=== PATIENT | male | born 1975 | race Caucasian/White ===

== ENCOUNTER 2022-05-22 17:01 | Inpatient (IN) | payer BC, SELFPAY ==
[2022-05-22] VITALS (49 sets, daily range): BP systolic 112–175; BP diastolic 73–97; PULSE 62–94; RESP 12–23; TEMP 36.4–36.6; O2SAT 93–100
--- NOTE | 2022-05-22 17:00 | RT.EKG_ITS ---
APPROVED REPORT Exam: Resting ECG Reason for Exam: chest pain Patient Location: E HR:72 bpm ECG Measurements Heart Rate 72 AXIS CO 182 P 32 QRSd 85 QRS -12 QT 377 T 102 QTc 413 Conclusion Sinus rhythm...normal P axis, V-rate 60- 99 Nonspecific repol abnormality, lateral leads...ST dep, T neg, I aVL V5 V6 st dep inferior lateral, hyperacute T waves Abnormal Electrocardiogram
--- NOTE | 2022-05-22 17:15 | DI.CT_ITS ---
Exam(s) CT THORAX ABD/PEL CTA EXAM: CT THORAX ABD/PEL CTA CLINICAL HISTORY: central chest pain. TECHNIQUE: Imaging Protocol: Axial CT angiography was performed with multi-slice acquisition and mu lti-planar and/or 3D reconstructions. CONTRAST MATERIAL: Intravenous: Omnipaque 350 Contrast volume:100 ml COMPARISON: No exams were available for comparison FINDINGS: CHEST: Pulmonary Arteries: No evidence of filling defect to suggest pulmonary emboli. Tracheobronchial tree: Patent where visualized. Mediastinum and Rose: No dominant adenopathy or fluid collection. Pulmonary parenchyma: No consolidation or dominant measurable mass. No architectural distortion. Pleura: No effusion or pneumothorax. Heart: The heart is not dilated. No coronary artery calcifications are seen. Aorta: Thoracic aorta non-dilated. Bones: Degenerative changes in the spine. Soft tissues: Mild symmetric bilateral gynecomastia. ABDOMEN: Liver: Moderate hepatic steatosis. Liver enlarged.. No measurable mass. Portal, Superior Mesenteric, and Splenic Veins: Unremarkable. Gallbladder and Biliary Tract: No radiodense calculus or dilation. Pancreas: Normal density, no abnormal calcifications or inflammatory process. Spleen: Normal. Adrenals: No masses seen. Kidneys: Normal size, contour and axis. No radiodense stones or obstructive uropathy. No masses seen. Abdominal Aorta and branch vessels: Abdominal aorta non-dilated. Mild atherosclerotic changes. No e vidence of dissection. No branch vessel occlusion. Iliac arteries normal in diameter. Bowel: No obstruction . Appendix is unremarkable. There is wall thickening of the sigmoid colon witho ut definite surrounding inflammation which could be secondary to muscular hypertrophy. Normal quanti ty of stool. Peritoneal Cavity: No ascites, collection or mesenteric inflammatory response. Lymph Nodes: Within normal limits. Bones: Degenerative changes in the spine. Soft Tissues: Unremarkable. PELVIS: Bladder: Symmetric distention, no gross wall thickening. Reproductive Organs: Unremarkable as visualized. Lymph Nodes: Within normal limits. Bones: Degenerative changes in the hips. Soft tissues: Bilateral fatty containing inguinal hernias, right greater than left. IMPRESSION: 1. Minimal atherosclerotic changes. No evidence of aortic dissection or aneurysm or pulmonary emboli sm. Branch vessels are intact. 2. No acute abdominal or pelvic process. Muscular hypertrophy of the wall of the sigmoid colon witho ut definite surrounding inflammation. RADIATION DOSE DELIVERED: 1,198.82mGy.cm Total DLP DATA REPOSITORY: All CT scans at this facility are submitted to the National Radiology Data Registry (NRDR) Dose Index Registry (DIR) with the [employer] (ACR). RADIATION OPTIMIZATION: All CT scans at this facility use at least one of these dose optimization te chniques: automated exposure control; mA and/or kV adjustment per patient size (includes targeted exa ms where dose is matched to clinical indication); or iterative reconstruction.
--- NOTE | 2022-05-22 17:21 | W.ED.GENAD ---
Discharge Plan Disposition Patient Disposition: [facility] INPATIENT Condition: Stable Discharge Details Chief Complaint: Chest Pain Clinical Impression: NSTEMI (non-ST elevated myocardial infarction) Admit Date/Time: 05/22/22 19:12 Admit Provider: Hernando Liu Attending Provider: Hernando Liu Primary Care Provider: Sukhwinder Winter ED Provider: Clayton Reyna Discharge Instructions Activity:: BEDREST Diet:: NPO Discharge Orders Discharge Orders: Discharge Order (Routine); Ordered 05/23/22 Ordered By: Teddy Bell Discharge Data Discharge Date/Time-TO BE ENTERED AT DEPARTURE: 05/22/22 20:15 Medical Decision Making 172 --46-year-old male smoker here with viselike chest pain since around 3 PM today with earlier symptoms this morning and chest discomfort a few days ago as well with exertional activity. Patient has no known cardiac history. He is hypertensive on arrival blood pressure 175/92. Saturating well no respiratory distress. I am concerned about potential ACS. EKG was reviewed interpreted by me: Please see report, sinus rhythm 72 bpm, normal axis, ST depression noted lead I, aVL, V5 and V6. Plan to check troponin. Given central description of pain as well as bubble discomfort a few days ago and now vice like farmworker dairy with hypertension, I am concerned about potential thoracic aortic dissection. Plan to obtain CTA of the chest. Patient has had recent significant life stressors with the passing of his mother. I do believe anxiety is contributing to presentation today. I will give Ativan 0.5 mg IV. 1852 --troponin is significantly elevated at 1500. CT of the chest was reviewed by me and no dissection. Awaiting radiologist interpretation. Repeat EKG was reviewed and interpreted by me: ST depressions have resolved, he does have biphasic T wave in V3 and V4 which are new. Concern for dynamic EKG changes. Patient was reassessed and blood pressure improved. Patient currently has no pain. Nitroglycerin will be held at this time. I will start heparin bolus and infusion as well as provide Plavix. He took aspirin prior to arrival. I called [facility] [place] to request transfer. EKGs were sent for review. Awaiting callback from cardiology. 1912 --I spoke with on-call offset printing operator at [facility] [place], discussed ED presentation and course, he reviewed EKGs, he agrees with heparin drip and Plavix. He agrees with need to transfer for catheterization and accepts the patient on behalf of of Dr. Clifford. He recommends holding the patient here until tomorrow for catheterization noting no bed capacity at this time. I spoke with the hospitalist on-call, Dr. Liu, discussed ED presentation course, he will accept the patient and request bridging orders be placed. HPI General Mode of arrival: ambulatory. Date/Time Provider Initiated Documentation: 05/22/22 17:19. Limitations to Documentation: no limitations. Information obtained by: patient. HPI Narrative: 46-year-old male smoker with history of GERD, presents with chief complaint of chest pain. Patient notes pain started on Friday with exertional activities. He notes he was clearing out his recently mother's home and doing heavy lifting with pain came on. Initially pain felt like a bubble in his chest. Symptoms resolved and he was pain-free on Friday and yesterday. Pain returned last night and was severe. Pain described as a viselike sensation on his chest. He notes around 4 AM he had nausea and vomiting and then felt better. He was able to sleep for a few hours. Pain returned today around 3 PM and has been persistent. Pain waxing and waning but still feels like a vice on his chest. No radiation. No associated shortness of breath. Patient does note he is been under a lot of stress with the passing of his mother. He has no history of anxiety disorder but is feeling anxious. Related Data Home Medications Medication Instructions Recorded Confirmed omeprazole magnesium 20 mg 20 mg PO DAILY 05/22/22 05/22/22 tablet,delayed release (Prilosec OTC) Allergies Allergy/AdvReac Type Severity Reaction Status Date / Time No Known Allergies Allergy Unverified 05/22/22 17:10 General Stated Complaint: Chest Pain BRUCE: 2 Review of Systems All systems reviewed & are unremarkable except as noted in HPI and below Constitutional Constitutional: Denies fever(s) Cardiovascular Cardiovascular: Reports as per HPI PFSH All Active Problems (Updated 05/31/22 @ 08:11 by Clayton Reyna MD) NSTEMI (non-ST elevated myocardial infarction) (Acute) Social History Smoking/Tobacco Use Status: Current every day Tobacco Type: cigarettes Smoking risk assessment performed?: Yes Alcohol Intake: never Drug use: Occasionally Substance use type: does not use and marijuana Do you feel safe at home: Yes Do you feel safe in your relationship?: Yes Exam Const General: cooperative Orientation: alert and awake HENMT Head: normocephalic Mouth: moist mucous membranes Eyes Conjunctivae: normal conjunctivae Sclera: normal sclerae EOM: EOM intact bilaterally Neck Neck: trachea midline and supple Resp Auscultation: clear to auscultation bilaterally, no rales, no rhonchi and no wheezes Cardio Jugular venous pressure: no JVD Rate: regular rate and not tachycardic Rhythm: regular rhythm Heart Sounds: S1 normal, S2 normal, no gallops, no murmurs and no rubs GI Palpation: soft, not firm, no guarding, no masses, not rigid and nontender Skin General skin exam: no rashes or lesions noted Neuro General: patient alert, patient awake, patient oriented x3 and tone normal Extrem General: no calf tenderness and no edema Psych Appearance: grossly normal Mental Status: mental status grossly normal Speech and Movement: speech and movement normal Mood: anxious mood Affect: anxious affect Course Vital Signs Vital signs: Vital Signs Temperature 36.6 C 05/22/22 17:04 Pulse 89 05/22/22 17:04 Respiratory Rate 15 05/22/22 17:04 Blood Pressure 175/92 H 05/22/22 17:04 Pulse Oximetry 99 05/22/22 17:04 Temperature 36.6 C 05/22/22 17:04 Temperature Source Skin 05/22/22 17:04 Pulse 89 05/22/22 17:04 Respiratory Rate 18 05/22/22 17:11 Respiratory Effort Non-Labored 05/22/22 17:11 Respiratory Depth Normal 05/22/22 17:11 Blood Pressure 175/92 H 05/22/22 17:04 Blood Pressure Position Supine 05/22/22 17:04 Pulse Oximetry 99 05/22/22 17:04 Oxygen Delivery Method Room Air 05/22/22 17:04 Oxygen Flow Rate 0 05/22/22 17:04 Pain Level 9 05/22/22 17:04
[2022-05-22 17:27] LABS: Abs Immature Grans 0.04 10^3/uL (0.0-0.06); Absolute Basophil Count 0.11 10^3/uL (0.0-0.2); Absolute Eosinophil Count 0.26 10^3/uL (0.0-0.7); Absolute Lymphocyte Count 3.05 10^3/uL (1.2-3.4); Absolute Monocyte Count 1.12 10^3/uL (0.1-0.8); Absolute Neutrophil Count 7.13 10^3/uL (1.2-6.7); Basophils % 0.9; Eosinophils % 2.2; HCT 50.6 % (40.0-50.0); HGB 17.3 g/dL (13.5-17.5); Immature Grans % 0.3; Lymphocytes % 26.1; MCH 30.3 pg (27.0-33.0); MCHC 34.2 % (32.0-36.0); MCV 89 fL (80-95); MPV 10.3 fL (8.0-11.0); Monocytes % 9.6; Neutrophils % 60.9; Platelet Count 212 10^3/uL (130-400); RBC 5.71 10^6/uL (4.36-5.78); RDW 12.5 % (11.8-14.1); RDW-SD 40.7 fL
[2022-05-22] MEDS: LORazepam 20 MG/10 ML VIAL IVP (17:29)
[2022-05-22 17:40] LABS: PTT Activated 25.5 sec (21.0-27.5); Prothrombin Time 10.2 sec (9.3-11.0)
[2022-05-22 17:51] LABS: ALT 51 U/L (16-63); AST 39 U/L (15-37); Albumin 4.3 g/dL (3.4-5.0); Alkaline Phosphatase 145 U/L (46-116); Anion Gap 8.2 mmol/L (3-11); BUN 13 mg/dL (7-18); Bilirubin, Total 0.7 mg/dL (0.2-1.0); CO2 27.8 mmol/L (21.0-32.0); CREATININE 1.1 mg/dL (0.70-1.30); Calcium 9.2 mg/dL (8.5-10.1); Chloride 97 mmol/L (98-107); Glucose 106 mg/dL (74-106); Magnesium 1.7 mg/dL (1.8-2.4); Potassium 3.2 mmol/L (3.5-5.1); Sodium 133 mmol/L (136-145); Total Protein 8.2 g/dL (6.4-8.2)
[2022-05-22 18:05] LABS: Troponin I 1572 ng/L (<or=60)
--- NOTE | 2022-05-22 18:15 | RT.EKG_ITS ---
APPROVED REPORT Exam: Resting ECG Reason for Exam: chest pain Patient Location: E HR:85 bpm ECG Measurements Heart Rate 85 AXIS CO 183 P 72 QRSd 87 QRS -18 QT 356 T 31 QTc 424 Conclusion Sinus rhythm...normal P axis, V-rate 60- 99 biphasic t waves V3, V4; st dep on prior ekg in lateral leads now resolved Abnormal Electrocardiogram
[2022-05-22] MEDS: Omnipaque 350 MG/ML 100 ML BTL IJ (18:19)
[2022-05-22] MEDS: Normal Saline Flush 10 ML SYR IVP ×2 (18:20→21:34)
[2022-05-22] MEDS: Clopidogrel 300 MG TAB 600 MG PO (18:34)
--- NOTE | 2022-05-22 18:39 | NUR.NOTE ---
Nursing Note: 1839: pt currently has no pain, discussed w/ Dr. Reyna -holding off on administering nitro for now.
[2022-05-22 18:52] LABS: Source Nasal/Nares
--- NOTE | 2022-05-22 19:59 | DI.VRAD_ITS ---
PROCEDURE INFORMATION: Exam: CTA Chest With Contrast CTA Abdomen and Pelvis With Contrast Exam date and time: 05/22/2022 6:27 PM Age: 46 years old Clinical indication: Other: Central chest pain TECHNIQUE: Imaging protocol: Computed tomographic angiography of the chest with contrast. Computed tomographic angiography of the abdomen and pelvis with contrast. 3D rendering (Not supervised by radiologist): MIP and/or 3D reconstructed images were created by the technologist. Total images: 2924 Radiation optimization: All CT scans at this facility use at least one of these dose optimization techniques: automated exposure control; mA and/or kV adjustment per patient size (includes targeted exams where dose is matched to clinical indication); or iterative reconstruction. Contrast material: OMNI 350; Contrast volume: 100 ml; Contrast route: INTRAVENOUS (IV); COMPARISON: No relevant prior studies available. FINDINGS: VASCULATURE: Pulmonary arteries: No filling defect in the pulmonary arterial tree. Aorta: No thoracic aortic dissection or aneurysm. No abdominal aortic aneurysm or dissection. Mild atherosclerotic plaque the aortic bifurcation. Celiac trunk and mesenteric arteries: No celiac trunk stenosis. No SMA stenosis or filling defect. The CHRISTIAN is patent. Renal arteries: No occlusion or significant stenosis. Right iliac arteries: No occlusion or significant stenosis. Left iliac arteries: No occlusion or significant stenosis. CHEST: Lungs: Unremarkable. No consolidation. No masses. Pleural spaces: Unremarkable. No pneumothorax. No pleural effusion. Heart: Unremarkable. No cardiomegaly. No pericardial effusion. ABDOMEN AND PELVIS: Liver: No mass. Gallbladder and bile ducts: Unremarkable. No calcified stones. No ductal dilation. Pancreas: Unremarkable. No mass. No ductal dilation. Spleen: Unremarkable. No splenomegaly. Adrenal glands: Unremarkable. No mass. Kidneys and ureters: Unremarkable. No solid mass. No hydronephrosis. Stomach and bowel: There is a circumferential wall thickening involving a 5 cm segment sigmoid colon without associated pericolonic stranding. No small dilatation. Appendix: No evidence of appendicitis. Intraperitoneal space: Unremarkable. No free air. No significant fluid collection. Urinary bladder: Unremarkable. No mass. Reproductive: Unremarkable as visualized. Lymph nodes: No mediastinal, hilar or axillary adenopathy. Borderline in size nodes measuring up to 1 cm adjacent to the right hepatic artery. Bones/joints: Old fracture deformity left 9th rib. Bilateral hip osteoarthritis. Bilateral SI joint osteoarthritis. Lower thoracic and lumbar spondylosis. Soft tissues: Mild gynecomastia. Small fat containing inguinal hernias. IMPRESSION: 1. No acute finding. 2. No PE. 3. No aortic dissection. 4. Segmental sigmoid wall thickening which could reflect colitis versus muscular hypertrophy associated with diverticular disease. 5. Borderline celiac axis nodes. Dictated and Authenticated by: Gerald Christiansen MD. Ordering:BOB Arnold MD
--- NOTE | 2022-05-22 20:20 | HPE_ITS ---
Date of service: 05/22/22 Time of Service: 20:21 Assessment and Plan Assessment and plan (1) NSTEMI (non-ST elevated myocardial infarction): Start date: 05/19/22 Status: Acute Assessment and plan: This is a 46-year-old gentleman presenting with exertional and then resting chest pain with no associated symptoms other than nausea with vomiting. Troponins elevated on the second and third troponins but only slightly with patient's chest pain stuttering when transferred from [facility] to the ICU but not recurring. He appears comfortable. He is on heparin infusion. He was initiated on medical therapy with high-dose atorvastatin 80 mg daily first dose given in the ICU. He was loaded with Plavix and aspirin and received aspirin in the field and Plavix in the ED. He will continue on low-dose aspirin with Plavix 75 mg daily. He was slightly hypotensive and was initiated on metoprolol 25 mg every 6 hours. He does have nitroglycerin for sublingual use but this was never used during his episodes of chest discomfort and pain. He has been accepted to [facility] cardiology service under Dr. Clifford and plans to transfer in the morning. He is a full code. (2) Atypical chest pain: Start date: 05/22/22 Status: Acute Assessment and plan: Patient does have an atypical nature to his chest pain. It is at rest and has minimal associated symptoms. His risk factors are elevated enough to be concerned for acute coronary syndrome and heparin fusion was appropriate. Medical medical therapy is appropriate. He is tolerating at this time. He did not have a PE by CTA and there is no aortic dissection.. He will be transferred for cardiac catheterization and should long-term work harder on cardiovascular r isk control. His urine drug screen was negative for cocaine but did have THC. History of Present Illness History of Present Illness Chief Complaint: Exertional and then resting chest pain Narrative: This is a 46-year-old male patient who recently lost his mother and has a history of smoking and reflux only on a PPI for medical therapy who presented with chest pain at rest. In the ED he reported having exertional chest pressure and pain 3 days prior to presentation. He was cleaning his house of his recently mother's home was doing heavier than usual lifting when he had the chest discomfort. It felt like a bubble in his chest or pressure. It resolved and he had no pain the next 2 days but presented with resting viselike sensation over his chest. He had nausea with vomiting and this made him feel somewhat better. He was awakened with his chest discomfort. He did not sleep after that event. His pain recurred with no dyspnea and no radiation and no nausea or vomiting. He had no diaphoresis. He reported to the ED with this chest discomfort. His pain was waxing waning in the ED and he never received a nitroglycerin drip but was initiated on IV heparin because of an elevated troponin and after consultation with [facility] with Dr. Clifford excepting patient for transfer to cardiology service in the morning. Once patient came to the floor on [facility] he had his troponin slightly increase on the second measurement and was transferred to the ICU for closer monitoring. His chest pain recurred but once again he did not receive glycerin and had an EKG which was essentially unchanged by report after this event. At the time as I saw the patient he was asleep having received Ativan and was comfortable with no complaints of discomfort. He told the nurse that he was under increased stress at home with his passing mother but has no history of depression or anxiety. He offers no history of alcohol misuse. Review of Systems Narrative: 13 point review of systems otherwise unrevealing or stable. PFSH All Active Problems Atypical chest pain (Acute) NSTEMI (non-ST elevated myocardial infarction) (Acute) Social History Smoking/Tobacco Use Status: Current every day Tobacco Type: cigarettes Smoking risk assessment performed?: Yes Alcohol Intake: never Drug use: Occasionally Substance use type: does not use and marijuana Do you feel safe at home: Yes Do you feel safe in your relationship?: Yes Meds Allergies and Home Medications Allergies Allergy/AdvReac Type Severity Reaction Status Date / Time No Known Allergies Allergy Unverified 05/22/22 17:10 Home Medications Medication Instructions Recorded Confirmed Type omeprazole magnesium 20 mg 20 mg PO DAILY 05/22/22 05/22/22 History tablet,delayed release (Prilosec OTC) Exam Narrative Exam Narrative: General: Patient appears appropriate for age, mild to moderately obese, easily aroused from sleep and alert and oriented x3 when discussing his history with nurses. He is in no acute distress. He is somewhat stoic as described by the nurses with flattened affect. HEENT: Normocephalic, eyes with pupils equal and reactive light symmetrically, extraocular movement intact and sclera anicteric. Oropharynx with moist mucosa and fair dentition. Neck: Supple without JVD or obvious thyromegaly. Back: Stooped posture without CVA tenderness. Lungs: Clear to auscultation and percussion. Heart: Regular rate and rhythm with no murmurs or gallops appreciated. Abdomen: Moderately obese, soft and nontender to palpation with no palpable hepatosplenomegaly. Genitalia/rectal: Exam deferred. Extremity: Without clubbing, cyanosis or pitting edema. Joints have full range of motion with no obvious swelling. Skin: Normal color, warm and dry. Neuro: Cranial nerves II through XII grossly intact, no focalized motor deficits. No tremor. Psych: Flattened affect with fair eye contact. Depressed mood. No abnormal thought processes. Remote and recent memory grossly intact. Results Imaging Imaging Studies: CTA Chest With Contrast CTA Abdomen and Pelvis With Contrast Exam date and time: 05/22/2022 6:27 PM Age: 46 years old Clinical indication: Other: Central chest pain TECHNIQUE: Imaging protocol: Computed tomographic angiography of the chest with contrast. Computed tomographic angiography of the abdomen and pelvis with contrast. 3D rendering (Not supervised by radiologist): MIP and/or 3D reconstructed images were created by the technologist. Total images: 2924 Radiation optimization: All CT scans at this facility use at least one of these dose optimization techniques: automated exposure control; mA and/or kV adjustment per patient size (includes targeted exams where dose is matched to clinical indication); or iterative reconstruction. Contrast material: OMNI 350; Contrast volume: 100 ml; Contrast route: INTRAVENOUS (IV);? COMPARISON: No relevant prior studies available. FINDINGS: VASCULATURE: Pulmonary arteries: No filling defect in the pulmonary arterial tree. Aorta: No thoracic aortic dissection or aneurysm. No abdominal aortic aneurysm or dissection. Mild atherosclerotic plaque the aortic bifurcation. Celiac trunk and mesenteric arteries: No celiac trunk stenosis. No SMA stenosis or filling defect. The CHRISTIAN is patent. Renal arteries: No occlusion or significant stenosis. Right iliac arteries: No occlusion or significant stenosis. Left iliac arteries: No occlusion or significant stenosis. CHEST: Lungs: Unremarkable. No consolidation. No masses. Pleural spaces: Unremarkable. No pneumothorax. No pleural effusion. Heart: Unremarkable. No cardiomegaly. No pericardial effusion. ABDOMEN AND PELVIS: Liver: No mass. Gallbladder and bile ducts: Unremarkable. No calcified stones. No ductal dilation. Pancreas: Unremarkable. No mass. No ductal dilation. Spleen: Unremarkable. No splenomegaly. Adrenal glands: Unremarkable. No mass. Kidneys and ureters: Unremarkable. No solid mass. No hydronephrosis. Stomach and bowel: There is a circumferential wall thickening involving a 5 cm segment sigmoid colon without associated pericolonic stranding. No small dilatation. Appendix: No evidence of appendicitis. Intraperitoneal space: Unremarkable. No free air. No significant fluid collection. Urinary bladder: Unremarkable. No mass. Reproductive: Unremarkable as visualized. Lymph nodes: No mediastinal, hilar or axillary adenopathy. Borderline in size nodes measuring up to 1 cm adjacent to the right hepatic artery. Bones/joints: Old fracture deformity left 9th rib. Bilateral hip osteoarthritis. Bilateral SI joint osteoarthritis. Lower thoracic and lumbar spondylosis. Soft tissues: Mild gynecomastia. Small fat containing inguinal hernias. IMPRESSION: 1. No acute finding. 2. No PE. 3. No aortic dissection. 4. Segmental sigmoid wall thickening which could reflect colitis versus muscular hypertrophy associated with diverticular disease. 5. Borderline celiac axis nodes. Labs Result diagrams: 05/22/22 17:09 05/22/22 17:19 Labs: Laboratory Results - last 24 hr 05/22/22 05/22/22 05/22/22 17:09 17:09 17:19 WBC 11.70 H RBC 5.71 Hgb 17.3 Hct 50.6 H MCV 89 MCH 30.3 MCHC 34.2 RDW 12.5 Plt Count 212 MPV 10.3 Immature Gran % 0.3 Neutrophils % 60.9 Lymphocytes % 26.1 Monocytes % 9.6 Eosinophils % 2.2 Basophils % 0.9 Nucleated RBC % 0.0 Absolute Neutrophils 7.13 H Absolute Lymphocytes 3.05 Absolute Monocytes 1.12 H Absolute Eosinophils 0.26 Absolute Basophils 0.11 PT 10.2 INR 1.0 APTT 25.5 Sodium 133 L Potassium 3.2 L Chloride 97 L Carbon Dioxide 27.8 Anion Gap 8.2 BUN 13 Creatinine 1.1 Estimated GFR/1.73 m2 >= 60.00 Glucose 106 Calcium 9.2 Magnesium 1.7 L Total Bilirubin 0.7 AST 39 H ALT 51 Alkaline Phosphatase 145 H Troponin I 1572 H* Total Protein 8.2 Albumin 4.3 COVID-19 Source 05/22/22 18:49 WBC RBC Hgb Hct MCV MCH MCHC RDW Plt Count MPV Immature Gran % Neutrophils % Lymphocytes % Monocytes % Eosinophils % Basophils % Nucleated RBC % Absolute Neutrophils Absolute Lymphocytes Absolute Monocytes Absolute Eosinophils Absolute Basophils PT INR APTT Sodium Potassium Chloride Carbon Dioxide Anion Gap BUN Creatinine Estimated GFR/1.73 m2 Glucose Calcium Magnesium Total Bilirubin AST ALT Alkaline Phosphatase Troponin I Total Protein Albumin COVID-19 Source Nasal/Nares Last Vital Signs Temp 36.6 C 05/22/22 17:04 Pulse 83 05/22/22 19:15 Resp 13 05/22/22 19:40 BP 146/97 H 05/22/22 19:30 Pulse Ox 96 05/22/22 19:40
[2022-05-22 20:35] LABS: Troponin I 1610 ng/L (<or=60)
[2022-05-22] MEDS: Metoprolol 25 MG TAB PO (21:23)
[2022-05-22] MEDS: POTASSIUM CHLORIDE 20 MEQ/100 ML BAG 50 MEQ IVPB ×2 (21:34→23:55)
[2022-05-22] MEDS: MAGNESIUM SULFATE 2 GM/50 ML BAG IVPB (21:34)
--- NOTE | 2022-05-22 22:09 | NUR.NOTE ---
Nursing Note: Pt arrived to the unit 2016, admission assess completed, pt ambulated to BR with no issues, denies CP or any other sx at this time. educated patient on medications and situation, all questions answered. medications administered per MAR. decision was made to transfer pt to ICU, report was given by this RN to ALONDRA Goodman at [id number] and pt transferred to floor at that time.
[2022-05-22 22:59] LABS: Bilirubin Negative (Negative); Blood Negative (Negative); Clarity Clear (Clear); Glucose Negative (Negative); Ketones Negative (Negative); Leukocyte Esterase Negative (Negative); Nitrite Negative (Negative); Urobilinogen 0.2 EU/dL (Up TO 0.2)
--- NOTE | 2022-05-22 23:00 | RT.EKG_ITS ---
APPROVED REPORT Exam: Resting ECG Reason for Exam: Chest pain Patient Location: I HR:67 bpm ECG Measurements Heart Rate 67 AXIS NC 202 P 57 QRSd 105 QRS -25 QT 375 T 25 QTc 396 Conclusion Sinus rhythm...normal P axis, V-rate 50- 99 Borderline prolonged NC interval...NC >202, V-rate 50- 90
[2022-05-22 23:11] LABS: *AMPHETAMINES SCREEN URINE Negative (Negative); *BARBITURATES SCREEN URINE Negative (Negative); *BENZODIAZEPINES SCREEN URINE Negative (Negative); Cannabinoids THC Positive (Negative); Cocaine Screen,Urine Negative (Negative); METHADONE URINE SCREEN Negative (Negative); OPIATES URINE SCREEN Negative (Negative)
[2022-05-22 23:12] LABS: Tricyclic Antidepressants Negative (Negative)
[2022-05-23] VITALS (51 sets, daily range): BP systolic 107–130; BP diastolic 63–91; PULSE 57–83; RESP 10–22; TEMP 36.8–37.1; O2SAT 92–100
[2022-05-23] MEDS: Atorvastatin 40 MG TAB 80 MG PO (00:13)
[2022-05-23 00:20] LABS: COVID-19 PCR Negative (Negative)
[2022-05-23 00:34] LABS: PTT Activated 32.1 sec (21.0-27.5)
[2022-05-23] MEDS: LORazepam 1 MG TAB PO (00:38)
[2022-05-23 00:42] LABS: Troponin I 1894 ng/L (<or=60)
[2022-05-23] MEDS: Metoprolol 25 MG TAB PO ×2 (03:49→08:13)
[2022-05-23] MEDS: Lactated Ringers 1,000 ML 125 ML IV (05:47)
[2022-05-23 07:11] LABS: Abs Immature Grans 0.04 10^3/uL (0.0-0.06); Absolute Basophil Count 0.08 10^3/uL (0.0-0.2); Absolute Eosinophil Count 0.46 10^3/uL (0.0-0.7); Absolute Lymphocyte Count 3.62 10^3/uL (1.2-3.4); Absolute Monocyte Count 0.81 10^3/uL (0.1-0.8); Absolute Neutrophil Count 5.83 10^3/uL (1.2-6.7); Basophils % 0.7; Eosinophils % 4.2; HCT 46.9 % (40.0-50.0); HGB 15.5 g/dL (13.5-17.5); Immature Grans % 0.4; Lymphocytes % 33.4; MCH 29.8 pg (27.0-33.0); MCV 90 fL (80-95); MPV 10.8 fL (8.0-11.0); Monocytes % 7.5; Neutrophils % 53.8; Platelet Count 275 10^3/uL (130-400); RDW 12.3 % (11.8-14.1); RDW-SD 40.7 fL; WBC 10.84 10^3/uL (4.4-10.8)
[2022-05-23 07:44] LABS: PTT Activated 28.5 sec (21.0-27.5)
--- NOTE | 2022-05-23 07:45 | RT.EKG_ITS ---
APPROVED REPORT Exam: Resting ECG Reason for Exam: NSTEMI Patient Location: I HR:70 bpm ECG Measurements Heart Rate 70 AXIS [place] 189 P 64 QRSd 105 QRS -23 QT 410 T 12 QTc 443 Conclusion Sinus rhythm...normal P axis, V-rate 50- 99 Abnormal T, consider ischemia, anterior leads...T <-0.20mV, V2-V4
[2022-05-23 07:47] LABS: ALT 37 U/L (16-63); AST 36 U/L (15-37); Albumin 3.5 g/dL (3.4-5.0); Alkaline Phosphatase 122 U/L (46-116); Anion Gap 7.4 mmol/L (3-11); BUN 10 mg/dL (7-18); Bilirubin, Total 0.7 mg/dL (0.2-1.0); CO2 24.6 mmol/L (21.0-32.0); CREATININE 0.9 mg/dL (0.70-1.30); Calcium 8.6 mg/dL (8.5-10.1); Chloride 103 mmol/L (98-107); Glucose 112 mg/dL (74-106); Magnesium 2.2 mg/dL (1.8-2.4); Potassium 4.2 mmol/L (3.5-5.1); Sodium 135 mmol/L (136-145); TSH (W/Ref FT4) 1.63 uIU/mL (0.36-3.74)
[2022-05-23 07:50] LABS: Troponin I 2198 ng/L (<or=60)
--- NOTE | 2022-05-23 08:11 | PDOC.CMIN ---
- If Service Date Differs Date of service: 05/23/22 Time of Service: 08:11 Care Management Initial Assess REASON FOR HOSPITALIZATION:: NSTEMI, HTN PAST MEDICAL HISTORY/PAST SURGICAL HISTORY:: Atypical chest pain (Acute). NSTEMI (non-ST elevated myocardial infarction) (Acute) PREVIOUS FUNCTIONAL STATUS/SOCIAL/FAMILY SUPPORTS:: Resides in [place], [place]. Independent at baseline. CURRENT FUNCTIONAL STATUS:: Remains in ICU, awaiting urgent transfer to [facility] Cardiology. ADVANCE DIRECTIVES:: None on file. Has patient been provided with info about the portal/API?: No Did the patient sign up for the portal?: No CODE STATUS:: Full Code INSURANCE COVERAGE / FINANCIAL ISSUES:: BS Other CURRENT HOME/COMMUNITY SERVICES/EQUIPMENT:: None at this time. PRIMARY CARE PHYSICIAN:: No local. POTENTIAL DISCHARGE NEEDS:: Transfer to [facility] PATIENT/FAMILY EDUCATION NEEDS:: Review transfer instructions. ANTICIPATED BARRIERS TO DISCHARGE:: Transfer-bed availability. TRANSPORTATION:: Transfer via EMS. PLAN:: Corey will be transferred to [facility] cardiology via EMS, when a bed becomes available.
[2022-05-23] MEDS: Aspirin 81 MG CHEW PO (08:13)
[2022-05-23] MEDS: Clopidogrel 75 MG TAB PO (08:13)
[2022-05-23] MEDS: Omeprazole 20 MG CAPCR PO (08:13)
[2022-05-23 09:21] LABS: Troponin I 2053 ng/L (<or=60)
--- NOTE | 2022-05-23 12:03 | PGE_ITS ---
Date of Service Date of service: 05/23/22 Time of Service: 12:03 Assessment and Plan Assessment and plan (1) NSTEMI (non-ST elevated myocardial infarction): Status: Acute Assessment and plan: Continue dual antiplatelet therapy with Plavix and aspirin. He was given a bolus of Plavix 600 mg loading dose last night and received 75 mg this morning. Continue aspirin 81 mg daily. Continue atorvastatin 80 mg daily. Continue heparin drip. aPTT was subtherapeutic this morning requiring a bolus and increase his drip to 1400 units an hour. Continue metoprolol as his blood pr essure and heart rate allow. Patient has been kept n.p.o. in anticipation of cardiac catheterization later today but if he has not transferred by early this afternoon we will give him a meal. Echocardiogram was not ordered today as it was anticipated that he would have been transferred this morning. Does not appear to be any acute congestive heart failure therefore echocardiogram is not needed emergently but can be performed at [facility]. Critical care time spent interviewing and examining the patient, reviewing studies, discussing case with patient's nurse and consulting physicians (Dr. Liu) was 30 minutes Subjective Subjective Interval history since last seen: 46-year-old smoker 1 pack/day no previous history of coronary artery disease no history of hypertension or diabetes mellitus and no family history of premature coronary artery disease who presented to the hospital with exertional chest pain associated with cleaning his mom's apartment. His mom this last month. He presented last night with chest tightness/pressure that woke him up from sleep. He was found to have an NSTEMI. EKG showed biphasic T waves across the precordial leads V3 and V4. Troponin level was elevated on admission last night 1572 ng/L and peaked at 2198 this morning. He is currently pain-free. He was given dual antiplatelet therapy with Plavix and aspirin last night started heparin drip but was never put on nitroglycerin. [facility] was called last night by Dr. Reyna from our emergency department and patient was accepted to the services of Dr. lCifford at [facility]. However they had no beds last night and patient was kept [facility] while he was being medically treated for his NSTEMI. Exam Narrative Exam Narrative: Middle-aged white male lying in bed no acute distress he is alert and oriented person place time circumstance. His girlfriend is here visiting with him. Lungs are clear to auscultation Heart is regular rate and rhythm without murmur rub or gallop. Abdomen is obese soft nontender normal bowel sounds Extremities without peripheral cyanosis or edema. Objective Last Vital Signs Temp 36.8 C 05/23/22 04:00 Pulse 64 05/23/22 11:01 Resp 15 05/23/22 11:01 BP 118/75 05/23/22 11:01 Pulse Ox 95 05/23/22 07:21 Laboratory Results - last 24 hr 05/22/22 05/22/22 05/22/22 06:22 17:09 17:09 WBC 11.70 H RBC 5.71 Hgb 17.3 Hct 50.6 H MCV 89 MCH 30.3 MCHC 34.2 RDW 12.5 Plt Count 212 MPV 10.3 Immature Gran % 0.3 Neutrophils % 60.9 Lymphocytes % 26.1 Monocytes % 9.6 Eosinophils % 2.2 Basophils % 0.9 Nucleated RBC % 0.0 Absolute Neutrophils 7.13 H Absolute Lymphocytes 3.05 Absolute Monocytes 1.12 H Absolute Eosinophils 0.26 Absolute Basophils 0.11 PT 10.2 INR 1.0 APTT 25.5 Sodium Potassium Chloride Carbon Dioxide Anion Gap BUN Creatinine Estimated GFR/1.73 m2 Glucose Calcium Magnesium Total Bilirubin AST ALT Alkaline Phosphatase Troponin I Total Protein Albumin TSH Cancelled Urine Color Urine Clarity Urine pH Ur Specific [place] Urine Protein Urine Ketones Urine Blood Urine Nitrite Urine Bilirubin Urine Urobilinogen Ur Leukocyte Esterase Urine Glucose Urine Opiates Screen Urine Methadone Screen Ur Barbiturates Screen Ur Tricyclics Screen Ur Amphetamines Screen U Benzodiazepines Scrn Urine Cocaine Screen Ur THC Screen COVID-19 Source SARS-CoV-2 (PCR) 05/22/22 05/22/22 05/22/22 17:19 18:49 20:13 WBC RBC Hgb Hct MCV MCH MCHC RDW Plt Count MPV Immature Gran % Neutrophils % Lymphocytes % Monocytes % Eosinophils % Basophils % Nucleated RBC % Absolute Neutrophils Absolute Lymphocytes Absolute Monocytes Absolute Eosinophils Absolute Basophils PT INR APTT Sodium 133 L Potassium 3.2 L Chloride 97 L Carbon Dioxide 27.8 Anion Gap 8.2 BUN 13 Creatinine 1.1 Estimated GFR/1.73 m2 >= 60.00 Glucose 106 Calcium 9.2 Magnesium 1.7 L Total Bilirubin 0.7 AST 39 H ALT 51 Alkaline Phosphatase 145 H Troponin I 1572 H* 1610 H* Total Protein 8.2 Albumin 4.3 TSH Urine Color Urine Clarity Urine pH Ur Specific [place] Urine Protein Urine Ketones Urine Blood Urine Nitrite Urine Bilirubin Urine Urobilinogen Ur Leukocyte Esterase Urine Glucose Urine Opiates Screen Urine Methadone Screen Ur Barbiturates Screen Ur Tricyclics Screen Ur Amphetamines Screen U Benzodiazepines Scrn Urine Cocaine Screen Ur THC Screen COVID-19 Source Nasal/Nares SARS-CoV-2 (PCR) Negative 05/22/22 05/22/22 05/23/22 21:50 21:50 00:12 WBC RBC Hgb Hct MCV MCH MCHC RDW Plt Count MPV Immature Gran % Neutrophils % Lymphocytes % Monocytes % Eosinophils % Basophils % Nucleated RBC % Absolute Neutrophils Absolute Lymphocytes Absolute Monocytes Absolute Eosinophils Absolute Basophils PT INR APTT Sodium Potassium Chloride Carbon Dioxide Anion Gap BUN Creatinine Estimated GFR/1.73 m2 Glucose Calcium Magnesium Total Bilirubin AST ALT Alkaline Phosphatase Troponin I 1894 H* Total Protein Albumin TSH Urine Color Yellow Urine Clarity Clear Urine pH 7.0 Ur Specific [place] 1.010 Urine Protein Negative Urine Ketones Negative Urine Blood Negative Urine Nitrite Negative Urine Bilirubin Negative Urine Urobilinogen 0.2 Ur Leukocyte Esterase Negative Urine Glucose Negative Urine Opiates Screen Negative Urine Methadone Screen Negative Ur Barbiturates Screen Negative Ur Tricyclics Screen Negative Ur Amphetamines Screen Negative U Benzodiazepines Scrn Negative Urine Cocaine Screen Negative Ur THC Screen Positive A COVID-19 Source SARS-CoV-2 (PCR) 05/23/22 05/23/22 05/23/22 00:12 05:35 06:22 WBC RBC Hgb Hct MCV MCH MCHC RDW Plt Count MPV Immature Gran % Neutrophils % Lymphocytes % Monocytes % Eosinophils % Basophils % Nucleated RBC % Absolute Neutrophils Absolute Lymphocytes Absolute Monocytes Absolute Eosinophils Absolute Basophils PT INR APTT 32.1 H Sodium Potassium Chloride Carbon Dioxide Anion Gap BUN Creatinine Estimated GFR/1.73 m2 Glucose Calcium Magnesium Total Bilirubin AST ALT Alkaline Phosphatase Troponin I Cancelled Cancelled Total Protein Albumin TSH Urine Color Urine Clarity Urine pH Ur Specific [place] Urine Protein Urine Ketones Urine Blood Urine Nitrite Urine Bilirubin Urine Urobilinogen Ur Leukocyte Esterase Urine Glucose Urine Opiates Screen Urine Methadone Screen Ur Barbiturates Screen Ur Tricyclics Screen Ur Amphetamines Screen U Benzodiazepines Scrn Urine Cocaine Screen Ur THC Screen COVID-19 Source SARS-CoV-2 (PCR) 08/02/0805/23/22 05/23/22 06:22 06:22 06:28 WBC 10.84 H RBC 5.20 Hgb 15.5 Hct 46.9 MCV 90 MCH 29.8 MCHC 33.0 RDW 12.3 Plt Count 275 MPV 10.8 Immature Gran % 0.4 Neutrophils % 53.8 Lymphocytes % 33.4 Monocytes % 7.5 Eosinophils % 4.2 Basophils % 0.7 Nucleated RBC % 0.0 Absolute Neutrophils 5.83 Absolute Lymphocytes 3.62 H Absolute Monocytes 0.81 H Absolute Eosinophils 0.46 Absolute Basophils 0.08 PT INR APTT 28.5 H Sodium 135 L Potassium 4.2 D Chloride 103 Carbon Dioxide 24.6 Anion Gap 7.4 BUN 10 Creatinine 0.9 Estimated GFR/1.73 m2 >= 60.00 Glucose 112 H Calcium 8.6 Magnesium 2.2 Total Bilirubin 0.7 AST 36 ALT 37 Alkaline Phosphatase 122 H Troponin I 2198 H* Total Protein 7.0 Albumin 3.5 TSH 1.63 Urine Color Urine Clarity Urine pH Ur Specific [place] Urine Protein Urine Ketones Urine Blood Urine Nitrite Urine Bilirubin Urine Urobilinogen Ur Leukocyte Esterase Urine Glucose Urine Opiates Screen Urine Methadone Screen Ur Barbiturates Screen Ur Tricyclics Screen Ur Amphetamines Screen U Benzodiazepines Scrn Urine Cocaine Screen Ur THC Screen COVID-19 Source SARS-CoV-2 (PCR) 05/23/22 08:45 WBC RBC Hgb Hct MCV MCH MCHC RDW Plt Count MPV Immature Gran % Neutrophils % Lymphocytes % Monocytes % Eosinophils % Basophils % Nucleated RBC % Absolute Neutrophils Absolute Lymphocytes Absolute Monocytes Absolute Eosinophils Absolute Basophils PT INR APTT Sodium Potassium Chloride Carbon Dioxide Anion Gap BUN Creatinine Estimated GFR/1.73 m2 Glucose Calcium Magnesium Total Bilirubin AST ALT Alkaline Phosphatase Troponin I 2053 H* Total Protein Albumin TSH Urine Color Urine Clarity Urine pH Ur Specific [place] Urine Protein Urine Ketones Urine Blood Urine Nitrite Urine Bilirubin Urine Urobilinogen Ur Leukocyte Esterase Urine Glucose Urine Opiates Screen Urine Methadone Screen Ur Barbiturates Screen Ur Tricyclics Screen Ur Amphetamines Screen U Benzodiazepines Scrn Urine Cocaine Screen Ur THC Screen COVID-19 Source SARS-CoV-2 (PCR)
--- NOTE | 2022-05-23 13:08 | DSE_ITS ---
Date of service: 05/23/22 Time of Service: 13:08 DS: Diagnosis Discharge Diagnosis (1) NSTEMI (non-ST elevated myocardial infarction): Status: Acute Asessment and Plan: see hospital course/discharge plan and H&P for details Discharge Plan Disposition Patient Disposition: [facility] Condition: Stable Discharge Details Reason For Visit: NSTEMI, HTN Admit Date/Time: 05/22/22 19:12 Admit Provider: Hernando Liu Attending Provider: Hernando Liu Primary Care Provider: None,None Hospital Course Hospital Course: 46-year-old male smoker with a recent episode of exertional chest pain present emergency department with acute chest pressure that woke him up from sleep around 4 am associated w/ nausea and vomiting. Pain resolved and he was able to go back to sleep but later after getting up had recurrent waxing and waning chest discomfort. Patient was found to have an NSTEMI with biphasic T wave changes across the precordial anterior leads along with elevated troponin level of 1572 ng/L which peaked at 2198 ng/L. CTA of chest done while in the ER did not show any aneurysm and no P.E. Patient was not given any nitroglycerin but was given DAPT (Plavix 600 mg and ASA 81 mg) and begun on heparin drip. ER personnel contacted property condition assessor cellars supervisor at [facility] to arrange transfer but as there were no beds available the patient was admitted to [facility] for medical treatment while awaiting transfer to [facility]. He was accepted to service of Dr. Clifford. Patient was begun on lopressor and atorvastatin as well as continued on heparin drip and Plavix 75 mg daily and ASA 81 mg daily. He has remained free of any chest pain/pressure and no dyspnea or nausea. Vital signs have remained stable. Repeat EKG's demonstrate persistent biphasic ST-T changes across precordial leads. Of note his CT of chest was also done w/ CT of abdomen and pelvis and there was noted some hypertrophy of the sigmoid colon wall which should be evaluated later w/ flex sigmoidoscopy or colonoscopy. Home Meds and New Rx's Prescriptions: No Action omeprazole magnesium [Prilosec OTC] 20 mg Tablet,Delayed Release (Dr/Ec) 20 mg PO DAILY Discharge Instructions Instructions: Heart Attack (DC) Activity:: BEDREST Diet:: NPO Discharge Orders Discharge Orders: Discharge Order (Routine); Ordered 05/23/22 Ordered By: Teddy Bell DS: Summary Summary Time spent discussing smoking cessation with patient: 3 to 10 minutes Time Spent with Patient providing and/or coordinating discharge services: Less than 30 minutes Status at Discharge Functional status at discharge: independent ambulation Overall status at discharge: patient is not back to baseline Mental Status: mental status grossly normal Speech and Movement: speech and movement normal Mood: congruent mood Affect: normal affect Exam Narrative Exam Narrative: Middle-aged white male lying in bed no acute distress he is alert and oriented person place time circumstance. His girlfriend is here visiting with him. Lungs are clear to auscultation Heart is regular rate and rhythm without murmur rub or gallop. Abdomen is obese soft nontender normal bowel sounds Extremities without peripheral cyanosis or edema. Psych Mental Status: mental status grossly normal Speech and Movement: speech and movement normal Mood: congruent mood Affect: normal affect DS: Data Vitals/I&O Vitals and I&O: Vital Signs Temperature 36.8 C 05/23/22 04:00 Temperature Source Temporal Artery Scan 05/23/22 04:00 Pulse 76 05/23/22 12:00 Pulse 72 05/23/22 12:40 Respiratory Rate 18 05/23/22 12:40 Respiratory Effort 05/23/22 04:00 Respiratory Depth Normal 05/23/22 04:00 Respiratory Pattern Normal 05/23/22 04:00 Blood Pressure 114/83 05/23/22 12:00 Blood Pressure Mean 91 05/23/22 12:00 Blood Pressure Position Supine 05/23/22 04:00 Pulse Oximetry 95 05/23/22 07:21 Oxygen Delivery Method Room Air 05/23/22 04:00 Oxygen Flow Rate 0 05/23/22 04:00 Pain Level 0 05/23/22 04:00 Intake & Output 05/22/22 05/23/22 05/23/22 23:59 11:59 23:59 Intake Total 160 / 160 906.3 / 906.3 Output Total 1775 / 1775 Balance 160 / -290 -868.7 / -868.7 Weight 109 kg Intake: IV 160 / 160 906.3 / 906.3 Output: Urine 1774 / 1775 Other: Urine Color Yellow Urine Appearance Clear Urine Odor Normal Voiding Methods Urinal Data Completed and Pending Labs on day of discharge: Labs from last 24 hours 05/23/22 05/23/22 05/23/22 14:45 08:45 06:28 WBC 10.84 H RBC 5.20 Hgb 15.5 Hct 46.9 MCV 90 MCH 29.8 MCHC 33.0 RDW 12.3 Plt Count 275 MPV 10.8 Immature Gran % 0.4 Neutrophils % 53.8 Lymphocytes % 33.4 Monocytes % 7.5 Eosinophils % 4.2 Basophils % 0.7 Nucleated RBC % 0.0 Absolute Neutrophils 5.83 Absolute Lymphocytes 3.62 H Absolute Monocytes 0.81 H Absolute Eosinophils 0.46 Absolute Basophils 0.08 PT INR APTT Pending Sodium Potassium Chloride Carbon Dioxide Anion Gap BUN Creatinine Estimated GFR/1.73 m2 Glucose Calcium Magnesium Total Bilirubin AST ALT Alkaline Phosphatase Troponin I 2053 H* Total Protein Albumin TSH Urine Color Urine Clarity Urine pH Ur Specific [place] Urine Protein Urine Ketones Urine Blood Urine Nitrite Urine Bilirubin Urine Urobilinogen Ur Leukocyte Esterase Urine Glucose Urine Opiates Screen Urine Methadone Screen Ur Barbiturates Screen Ur Tricyclics Screen Ur Amphetamines Screen U Benzodiazepines Scrn Urine Cocaine Screen Ur THC Screen COVID-19 Source SARS-CoV-2 (PCR) 05/23/22 05/23/22 05/23/22 06:22 06:22 06:22 WBC RBC Hgb Hct MCV MCH MCHC RDW Plt Count MPV Immature Gran % Neutrophils % Lymphocytes % Monocytes % Eosinophils % Basophils % Nucleated RBC % Absolute Neutrophils Absolute Lymphocytes Absolute Monocytes Absolute Eosinophils Absolute Basophils PT INR APTT 28.5 H Sodium 135 L Potassium 4.2 D Chloride 103 Carbon Dioxide 24.6 Anion Gap 7.4 BUN 10 Creatinine 0.9 Estimated GFR/1.73 m2 >= 60.00 Glucose 112 H Calcium 8.6 Magnesium 2.2 Total Bilirubin 0.7 AST 36 ALT 37 Alkaline Phosphatase 122 H Troponin I 2198 H* Cancelled Total Protein 7.0 Albumin 3.5 TSH 1.63 Urine Color Urine Clarity Urine pH Ur Specific [place] Urine Protein Urine Ketones Urine Blood Urine Nitrite Urine Bilirubin Urine Urobilinogen Ur Leukocyte Esterase Urine Glucose Urine Opiates Screen Urine Methadone Screen Ur Barbiturates Screen Ur Tricyclics Screen Ur Amphetamines Screen U Benzodiazepines Scrn Urine Cocaine Screen Ur THC Screen COVID-19 Source SARS-CoV-2 (PCR) 05/23/22 05/23/22 05/23/22 05:35 00:12 00:12 WBC RBC Hgb Hct MCV MCH MCHC RDW Plt Count MPV Immature Gran % Neutrophils % Lymphocytes % Monocytes % Eosinophils % Basophils % Nucleated RBC % Absolute Neutrophils Absolute Lymphocytes Absolute Monocytes Absolute Eosinophils Absolute Basophils PT INR APTT 32.1 H Sodium Potassium Chloride Carbon Dioxide Anion Gap BUN Creatinine Estimated GFR/1.73 m2 Glucose Calcium Magnesium Total Bilirubin AST ALT Alkaline Phosphatase Troponin I Cancelled 1894 H* Total Protein Albumin TSH Urine Color Urine Clarity Urine pH Ur Specific [place] Urine Protein Urine Ketones Urine Blood Urine Nitrite Urine Bilirubin Urine Urobilinogen Ur Leukocyte Esterase Urine Glucose Urine Opiates Screen Urine Methadone Screen Ur Barbiturates Screen Ur Tricyclics Screen Ur Amphetamines Screen U Benzodiazepines Scrn Urine Cocaine Screen Ur THC Screen COVID-19 Source SARS-CoV-2 (PCR) 05/22/22 05/22/22 05/22/22 21:50 21:50 20:13 WBC RBC Hgb Hct MCV MCH MCHC RDW Plt Count MPV Immature Gran % Neutrophils % Lymphocytes % Monocytes % Eosinophils % Basophils % Nucleated RBC % Absolute Neutrophils Absolute Lymphocytes Absolute Monocytes Absolute Eosinophils Absolute Basophils PT INR APTT Sodium Potassium Chloride Carbon Dioxide Anion Gap BUN Creatinine Estimated GFR/1.73 m2 Glucose Calcium Magnesium Total Bilirubin AST ALT Alkaline Phosphatase Troponin I 1610 H* Total Protein Albumin TSH Urine Color Yellow Urine Clarity Clear Urine pH 7.0 Ur Specific [place] 1.010 Urine Protein Negative Urine Ketones Negative Urine Blood Negative Urine Nitrite Negative Urine Bilirubin Negative Urine Urobilinogen 0.2 Ur Leukocyte Esterase Negative Urine Glucose Negative Urine Opiates Screen Negative Urine Methadone Screen Negative Ur Barbiturates Screen Negative Ur Tricyclics Screen Negative Ur Amphetamines Screen Negative U Benzodiazepines Scrn Negative Urine Cocaine Screen Negative Ur THC Screen Positive A COVID-19 Source SARS-CoV-2 (PCR) 05/22/22 05/22/22 05/22/22 18:49 17:19 17:09 WBC RBC Hgb Hct MCV MCH MCHC RDW Plt Count MPV Immature Gran % Neutrophils % Lymphocytes % Monocytes % Eosinophils % Basophils % Nucleated RBC % Absolute Neutrophils Absolute Lymphocytes Absolute Monocytes Absolute Eosinophils Absolute Basophils PT 10.2 INR 1.0 APTT 25.5 Sodium 133 L Potassium 3.2 L Chloride 97 L Carbon Dioxide 27.8 Anion Gap 8.2 BUN 13 Creatinine 1.1 Estimated GFR/1.73 m2 >= 60.00 Glucose 106 Calcium 9.2 Magnesium 1.7 L Total Bilirubin 0.7 AST 39 H ALT 51 Alkaline Phosphatase 145 H Troponin I 1572 H* Total Protein 8.2 Albumin 4.3 TSH Urine Color Urine Clarity Urine pH Ur Specific [place] Urine Protein Urine Ketones Urine Blood Urine Nitrite Urine Bilirubin Urine Urobilinogen Ur Leukocyte Esterase Urine Glucose Urine Opiates Screen Urine Methadone Screen Ur Barbiturates Screen Ur Tricyclics Screen Ur Amphetamines Screen U Benzodiazepines Scrn Urine Cocaine Screen Ur THC Screen COVID-19 Source Nasal/Nares SARS-CoV-2 (PCR) Negative 05/22/22 05/22/22 17:09 06:22 WBC 11.70 H RBC 5.71 Hgb 17.3 Hct 50.6 H MCV 89 MCH 30.3 MCHC 34.2 RDW 12.5 Plt Count 212 MPV 10.3 Immature Gran % 0.3 Neutrophils % 60.9 Lymphocytes % 26.1 Monocytes % 9.6 Eosinophils % 2.2 Basophils % 0.9 Nucleated RBC % 0.0 Absolute Neutrophils 7.13 H Absolute Lymphocytes 3.05 Absolute Monocytes 1.12 H Absolute Eosinophils 0.26 Absolute Basophils 0.11 PT INR APTT Sodium Potassium Chloride Carbon Dioxide Anion Gap BUN Creatinine Estimated GFR/1.73 m2 Glucose Calcium Magnesium Total Bilirubin AST ALT Alkaline Phosphatase Troponin I Total Protein Albumin TSH Cancelled Urine Color Urine Clarity Urine pH Ur Specific [place] Urine Protein Urine Ketones Urine Blood Urine Nitrite Urine Bilirubin Urine Urobilinogen Ur Leukocyte Esterase Urine Glucose Urine Opiates Screen Urine Methadone Screen Ur Barbiturates Screen Ur Tricyclics Screen Ur Amphetamines Screen U Benzodiazepines Scrn Urine Cocaine Screen Ur THC Screen COVID-19 Source SARS-CoV-2 (PCR) PFSH All Active Problems Atypical chest pain (Acute) NSTEMI (non-ST elevated myocardial infarction) (Acute) Social History Smoking/Tobacco Use Status: Current every day Tobacco Type: cigarettes Smoking risk assessment performed?: Yes Alcohol Intake: never Drug use: Occasionally Substance use type: does not use and marijuana Do you feel safe at home: Yes Do you feel safe in your relationship?: Yes
== END 2022-05-23 14:45 | disposition short-term general hospital (02) | DRG 282 ==
LOC: ER 18:39 → MS 20:59 → ICU 22:25 → MS 05-23 01:01
PROVIDERS: Internal Medicine; Admitting Provider Family Medicine; Emergency Provider Student in an Organized Health Care Education/Training Program; PCP Family Medicine; Visit Provider Family Medicine
DX: I21.4 Non-ST elevation (NSTEMI) myocardial infarction (principal); R11.2 Nausea with vomiting, unspecified; F17.210 Nicotine dependence, cigarettes, uncomplicated; R93.3 Abnormal findings on diagnostic imaging of other parts of digestive tract
CPT/HCPCS: 36415; 71275; 80053; 80307; 87635; 93005; 96374; 99284; 99285; 74174; 81003; 83735; 84443; 84484; 85025; 85610; 85730; 93010; 99223; 99238; 99291; J3480; J3490